=== PATIENT | male | born 1980 | race Caucasian/White ===

== ENCOUNTER 2016-12-25 17:13 | Emergency (ER) | payer MEDICAID, OTHER, SELFPAY ==
--- NOTE | 2016-12-25 17:57 | EDM.PDOC ---
ED HPI GENERAL MEDICAL PROBLEM - General Chief Complaint: Laceration Stated Complaint: LACERATION Time Seen by Provider: 12/25/16 17:15 Source of Information: Reports: Patient History Limitations: Reports: No Limitations - History of Present Illness INITIAL COMMENTS - FREE TEXT/NARRATIVE: According to patient he was cleaning the fish with a clean new knife he had bought and accidentally cut the tip of his left ring finger. the cut has been bleeding. He did wash with running water and applied pressure with a clean towel and came into emergency room to be seen. He has not pain or numbness in the finger. the laceration does bleed and is gapping. Able to make a fist. No other injuries. LAst tetanus was 1 year ago. Onset: Today Onset Date: 12/25/16 Onset Time: 16:45 Improves with: Reports: None Worsens with: Reports: None Associated Symptoms: Denies: Fever/Chills, Nausea/Vomiting, Rash, Seizure, Shortness of Breath left fourth finger Pain Score (Numeric/FACES): 4 - Related Data Allergies Allergy/AdvReac Type Severity Reaction Status Date / Time No Known Allergies Allergy Verified 12/25/16 17:30 Home Meds: Home Meds NK [No Known Home Meds] 12/25/16 [History] ED ROS GENERAL - Review of Systems Review Of Systems: See Below Constitutional: Denies: Fever, Chills HEENT: Denies: Rhinitis, Sinus Problem Respiratory: Denies: Cough, Sputum Cardiovascular: Denies: Lightheadedness GI/Abdominal: Denies: Nausea, Vomiting Musculoskeletal: Denies: Joint Pain, Joint Swelling Skin: Denies: Bruising, Pruritis, Rash Neurological: Denies: Numbness, Tingling ED EXAM, SKIN/RASH Exam: See Below Exam Limited By: No Limitations General Appearance: Alert, WD/WN, No Apparent Distress Eye Exam: Bilateral Eye: EOMI, PERRL Ears: Normal External Exam, Normal Canal, Hearing Grossly Normal, Normal TMs Nose: Normal Inspection, Normal Mucosa, No Blood Throat/Mouth: Normal Inspection, Normal Lips, Normal Teeth, Normal Gums, Normal Oropharynx, Normal Voice, No Airway Compromise Head: Atraumatic, Normocephalic Neck: Normal Inspection, Supple, Non-Tender, Full Range of Motion Respiratory/Chest: No Respiratory Distress, Lungs Clear, Normal Breath Sounds, No Accessory Muscle Use, Chest Non-Tender Cardiovascular: Normal Peripheral Pulses, Regular Rate, Rhythm, No Edema, No Gallop, No JVD, No Murmur, No Rub Skin: Warm, Intact, Other (Left ring finger: ther is a 1.5cm curved clean cut laceration over the palmar aspect of the tip of the finger. the wound is gapping and bleeding. Normal neurovascular exam. Able to flex and extend all the phalynx of the finger.) ED SKIN PROCEDURES - Laceration/Wound Repair Left Finger Lac/Wound length In cm: 1.5 Appearance: Superficial, Clean Distal NVT: Neuro & Vascular Intact Anesthetic Type: Local Local Anesthesia - Lidocaine (Xylocaine): 2% Plain Local Anesthetic Volume: 1cc Skin Prep: Providone-Iodine (Betadine) Closed with: Sutures Suture Size: other (5-O) # of Sutures: 4 Suture Type: Other (monosuf) Sterile Dressing Applied: Provider Tetanus Status Addressed: Yes Complications: No Course - Vital Signs Text/Narrative:: The laceration closed under aseptic precautions. Tube dressing applied. Wound care and precautions discussed with patient. Suture removal in 1 wk in clinic. Last Recorded V/S: Last Vital Signs Temp 97.8 F 12/25/16 17:26 Pulse 92 12/25/16 17:26 Resp 16 12/25/16 17:26 BP 152/95 H 12/25/16 17:26 Pulse Ox 93 L 12/25/16 17:26 Departure - Departure Time of Disposition: 17:50 Disposition: Home, Self-Care 01 Condition: Good Clinical Impression: Laceration of left ring finger - Discharge Information Instructions: Laceration Care, Adult Referrals: PCP,None [Primary Care Provider] - Forms: ED Department Discharge Additional Instructions: Keep laceration clean and dry for the next 3 days. Return to the clinic in the next 7 days for suture removal. Call [phone] for a clinic appt or if you have any further questions call the hospital [phone]. - Problem List & Annotations (1) Laceration of left ring finger SNOMED Code(s): 463091275 Code(s): S61.215A - LACERATION W/O FB OF L RNG FNGR W/O DAMAGE TO NAIL, INIT Status: Acute - Problem List Review Problem List Initiated/Reviewed/Updated: Yes - Assessment/Plan Assessment:: 1.5 cm laceration of left ring finger tip Plan: The laceration closed under aseptic precautions. Tube dressing applied. Wound care and precautions discussed with patient. Pt is up to date on tetanus Suture removal in 1 wk in clinic.
== END 2016-12-25 17:50 | disposition home or self-care (01) ==
LOC: LB.ED 17:13
DX: S61.215A Laceration without foreign body of left ring finger without damage to nail, initial encounter (principal); W26.0XXA Contact with knife, initial encounter
CPT/HCPCS: 12001; 12002; 99282; 99282-25

== ENCOUNTER 2024-05-31 21:33 | Emergency (ER) | payer BC | END 2024-05-31 22:11 | disposition home or self-care (01) | LOC: LB.ED 21:33 | DX: S61.313A Laceration without foreign body of left middle finger with damage to nail, initial encounter (principal); Z79.899 Other long term (current) drug therapy; W29.0XXA Contact with powered kitchen appliance, initial encounter | CPT/HCPCS: 12001; 99282; 99283 ==